=== PATIENT | male | born 1945 | race Hispanic/Latino ===

== ENCOUNTER 2020-04-08 07:00 | Day surgery (SDC) | payer MEDICARE ==
[2020-04-04 13:50] LABS: BASOPHILS % (AUTO) 0.7 % (0.0-5.0); EOSINOPHILS % (AUTO) 1.5 % (0.0-8.0); HEMATOCRIT 42.1 % (42-54); LYMPHOCYTES % (AUTO) 15.5 % (21.0-51.0); MEAN CORPUSCULAR HEMOGLOBIN 28.8 pg (27.0-33.0); MEAN CORPUSCULAR HGB CONC 32.5 g/dL (32.0-36.0); MEAN CORPUSCULAR VOLUME 88.6 fL (79-99); MONOCYTES % (AUTO) 9.3 % (3.0-13.0); NEUTROPHILS % (AUTO) 72.7 % (40.0-77.0); PLATELET COUNT (AUTO) 172 K/uL (130-400); RED BLOOD CELL COUNT(AUTO) 4.75 MIL/uL (4.50-6.20); RED CELL DISTRIBUTION WIDTH 14.5 % (11.0-15.5); WHITE BLOOD COUNT (AUTO) 5.9 K/uL (4.8-10.8)
[2020-04-04 13:57] LABS: CREATININE 1.5 mg/dL (0.5-1.5); POTASSIUM 4.6 mmol/L (3.5-5.1)
[2020-04-04 14:03] LABS: INR 1.38 (0.85-1.15); PARTIAL THROMBOPLASTIN TIME 35.4 SEC (26.3-35.5); PROTHROMBIN TIME 14.7 SEC (9.6-11.6)
--- NOTE | 2020-04-05 15:06 | NUR ---
Abnormal labs Informed DONATO Chilel of abnormal labs BUN 22, PT 14.7, INR 1.38. Informed him of procedure to be done and pt on Warfarin. Stated ok to proceed
[~2020-04-08] VITALS: Ht 189.2 cm; Wt 132.3 kg
[2020-04-08] VITALS (8 sets, daily range): BP systolic 149–162; BP diastolic 67–93
[~2020-04-08 07:00] MED LIST: ACET-2113 PO; ALLO300T2 PO; COLC0.6T73 PO; FURO-151 PO; LOSA50TA64 PO; OMEG-148 PO; SODIUM CHLORIDE 0.9% 500ML 500 ML IV SCH; WARF3TAB59 PO; WARF6TAB49 PO
[2020-04-08] MEDS ORDERED: SODIUM CHLORIDE 0.9% 1000ML 1,000 ML IV ONE (07:35)
[2020-04-08] MEDS ORDERED: CEFAZOLIN SODIUM 1 GM VIAL ONE (13:07)
[2020-04-08] MEDS ORDERED: BUPIVACAINE/PF 0.25% 30ML VIAL IJ ONE (13:07)
[2020-04-08] MEDS ORDERED: MIDAZOLAM HCL 1 MG/ML 2ML VIAL ONE (13:07)
[2020-04-08] MEDS ORDERED: FENTANYL CITRATE PF 50 MCG/1 ML 2ML VIAL ONE (13:07)
[2020-04-08] MEDS ORDERED: LIDOCAINE HCL 1% MDV 50ML VIAL ONE (13:08)
--- NOTE | 2020-04-08 13:20 | NUR ---
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 IV IN PLACE AND PATENT. PATIENT STATES NO COMPLAINTS OF PAIN.
[2020-04-08] MEDS ORDERED: IODIXANOL 320 MG/ML 100 ML VIAL ONE (13:50)
--- NOTE | 2020-04-08 17:10 | NUR ---
PT STABLE, NO DISTRESS, VITALS WNL. DRESSING TO UPPER RT CHEST IS D/I. NO ACTIVE BLEEDING OR HEMATOMA NOTED TO SITE. INSTRUCTIONS GIVEN TO SPOUSE AND BIOTRONIC DEVICE. PERSONAL BELONGINGS WITH PT. IV D/C CATHETER INTACT, DRESSED WITH ASSISTANCE. TAKEN OUT IN W/C DRIVEN HOME BY SPOUSE.
== END 2020-04-08 17:10 | disposition home or self-care (01) ==
LOC: DAH 07:00
PROVIDERS: ATTEND Internal Medicine Cardiovascular Disease
DX: I46.9 Cardiac arrest, cause unspecified (principal); I48.21 Permanent atrial fibrillation; I87.2 Venous insufficiency (chronic) (peripheral); I71.2 Thoracic aortic aneurysm, without rupture; E11.9 Type 2 diabetes mellitus without complications; G47.33 Obstructive sleep apnea (adult) (pediatric); I10 Essential (primary) hypertension; Z99.89 Dependence on other enabling machines and devices; Z85.46 Personal history of malignant neoplasm of prostate; Z79.01 Long term (current) use of anticoagulants; Z79.899 Other long term (current) drug therapy
CPT/HCPCS: 33207; 36415; 80048; 82948 ×2; 85025; 85610; 85730; 93005; A4215; A4216; A4221; A4222; A4223 ×3; A4606; A4663; C1786; C1898; J0690; J3010; J3490 ×2; J7030; Q9967; 99156; 99157; J2250